=== PATIENT | female | born 1940 | race Caucasian/White ===

== ENCOUNTER 2019-05-30 05:38 | Emergency (ER) | payer MEDICARE, BC ==
[2019-05-30] MEDS ORDERED: Acetaminophen 325 MG Tab PO ONE (05:54)
--- NOTE | 2019-05-30 05:57 | EDM.PDOC ---
<Li Galvan - Last Filed: 05/30/19 06:16> ED HPI GENERAL MEDICAL PROBLEM - General Chief Complaint: Fever Stated Complaint: FEVER/BLADDER INFECTION Time Seen by Provider: 05/30/19 05:55 Source of Information: Reports: Patient History Limitations: Reports: No Limitations - History of Present Illness INITIAL COMMENTS - FREE TEXT/NARRATIVE: pt arrived with a fever and having a low bp. She was started on sat on nitrofurdantin for a UTI. She spiked this fever today. Onset: Other ( Infection started Sat. ) Duration: Hour(s):, Getting Worse Location: Reports: Generalized Associated Symptoms: Reports: Fever/Chills Treatments STOPPER GRINDER: Reports: Other (see below) Other Treatments STOPPER GRINDER: On macrodantin. - Related Data Allergies Allergy/AdvReac Type Severity Reaction Status Date / Time No Known Allergies Allergy Verified 05/30/19 05:50 Home Meds: Home Meds Levothyroxine [Synthroid] 25 mcg PO ACBREAKFAST 01/28/15 [History] Nitrofurantoin Finney/Macrocryst [Nitrofurantoin Finney-MCR] 100 mg PO BID 05/30/19 [History] ED ROS ENT - Review of Systems Review Of Systems: See Below Constitutional: Reports: Fever, Chills, Malaise, Weakness HEENT: Reports: No Symptoms Respiratory: Reports: No Symptoms Cardiovascular: Reports: No Symptoms Endocrine: Reports: No Symptoms GI/Abdominal: Reports: No Symptoms : Reports: Dysuria, Frequency Musculoskeletal: Reports: No Symptoms Neurological: Reports: No Symptoms ED EXAM, ENT - Physical Exam Exam: See Below Text/Narrative:: pt has been spiking high temps. She has been on nitrofurdantin since Sat when she was seen at urgent care. She has been weak and not able to ambulate well. Exam Limited By: No Limitations General Appearance: Alert, Anxious, Other Ears: Normal TMs Nose: Normal Inspection Mouth/Throat: Normal Inspection, Other (pt has a very dry mouth. ) Head: Atraumatic Neck: Normal Inspection Respiratory/Chest: No Respiratory Distress Cardiovascular: Regular Rate, Rhythm GI/Abdominal: Soft, Non-Tender (Female) Exam: Deferred Rectal (Female) Exam: Deferred Back: Normal Inspection Extremities: Normal Inspection Neurological: Alert, Oriented, Normal Cognition Psychiatric: Anxious Course - Vital Signs Last Recorded V/S: Last Vital Signs Temp 98.1 F 05/30/19 08:45 Pulse 79 05/30/19 08:30 Resp 16 05/30/19 07:13 BP 86/59 L 05/30/19 08:30 Pulse Ox 97 05/30/19 08:30 - Orders/Labs/Meds Orders: Active Orders 24 hr Category Date Time Status Bladder Scan [RC] ASDIRECTED Care 05/30/19 06:15 Active CULTURE BLOOD [BC] Urgent Lab 05/30/19 06:00 Received CULTURE BLOOD [BC] Urgent Lab 05/30/19 06:05 Received CULTURE URINE [RM] Stat Lab 05/30/19 06:42 Received Norepinephrine 4 MG in D5W @ 2 MCG/MIN(250ml) Med 05/30/19 08:45 Ordered Norepinephrine [Levophed] 4 mg Dextrose 5% in Water 246 ml IV TITRATE Sodium Chloride 0.9% [Normal Saline] 1,000 ml Med 05/30/19 06:00 Active IV ASDIRECTED Sodium Chloride 0.9% [Normal Saline] 1,000 ml Med 05/30/19 06:00 Active IV ASDIRECTED Blood Culture x2 Reflex Set [OM.PC] Urgent Oth 05/30/19 05:48 Ordered Medication Orders Sodium Chloride (Normal Saline) 1,000 mls @ 999 mls/hr IV ASDIRECTED DOMINGO Last Admin: 05/30/19 06:05 Dose: 999 mls/hr Sodium Chloride (Normal Saline) 1,000 mls @ 999 mls/hr IV ASDIRECTED DOMINGO Last Admin: 05/30/19 07:06 Dose: 999 mls/hr Norepinephrine Bitartrate 4 mg (/ Dextrose/Water) 250 mls @ 7.5 mls/hr IV TITRATE DOMINGO; Protocol Labs: Laboratory Tests 05/30/19 05/30/19 05/30/19 Range/Units 05:48 05:56 06:00 WBC 9.5 (4.5-11.0) K/uL RBC 4.00 (3.30-5.50) M/uL Hgb 11.8 L (12.0-15.0) g/dL Hct 36.0 (36.0-48.0) % MCV 90 (80-98) fL MCH 30 (27-31) pg MCHC 33 (32-36) % Plt Count 141 L (150-400) K/uL Neut % (Auto) 87 H (36-66) % Lymph % (Auto) 6 L (24-44) % [place] % (Auto) 7 H (2-6) % Eos % (Auto) 1 L (2-4) % Baso % (Auto) 0 (0-1) % Sodium (140-148) mmol/L Potassium (3.6-5.2) mmol/L Chloride (100-108) mmol/L Carbon Dioxide (21-32) mmol/L Anion Gap (5.0-14.0) mmol/L BUN (7-18) mg/dL Creatinine (0.6-1.0) mg/dL Est Cr Clr Drug Dosing mL/min Estimated GFR (MDRD) (>60) Glucose (74-106) mg/dL Lactic Acid (0.4-2.0) mmol/L Calcium (8.5-10.1) mg/dL Total Bilirubin (0.2-1.0) mg/dL AST (15-37) U/L ALT (12-78) U/L Alkaline Phosphatase (46-116) U/L Total Protein (6.4-8.2) g/dL Albumin (3.4-5.0) g/dL Globulin (2.3-3.5) g/dL Albumin/Globulin Ratio (1.2-2.2) TSH, Ultra Sensitive 1.055 (0.358-3.740) uIU/mL Urine Color Yellow Urine Appearance Clear Urine pH 6.0 (4.5-8.0) Ur Specific [place] 1.010 (1.008-1.030) Urine Protein Trace (NEGATIVE) mg/dL Urine Glucose (UA) Normal (NEGATIVE) mg/dL Urine Ketones Negative (NEGATIVE) mg/dL Urine Occult Blood Trace (NEGATIVE) Urine Nitrite Negative (NEGATIVE) Urine Bilirubin Negative (NEGATIVE) Urine Urobilinogen Normal (NORMAL) mg/dL Ur Leukocyte Esterase Negative (NEGATIVE) Urine RBC 0-5 (0-5) Urine WBC 0-5 (0-5) Ur Epithelial Cells Few Amorphous Sediment Few Urine Bacteria Few Urine Mucus Not seen 05/30/19 05/30/19 Range/Units 06:00 06:00 WBC (4.5-11.0) K/uL RBC (3.30-5.50) M/uL Hgb (12.0-15.0) g/dL Hct (36.0-48.0) % MCV (80-98) fL MCH (27-31) pg MCHC (32-36) % Plt Count (150-400) K/uL Neut % (Auto) (36-66) % Lymph % (Auto) (24-44) % [place] % (Auto) (2-6) % Eos % (Auto) (2-4) % Baso % (Auto) (0-1) % Sodium 135 L (140-148) mmol/L Potassium 3.5 L (3.6-5.2) mmol/L Chloride 99 L (100-108) mmol/L Carbon Dioxide 25 (21-32) mmol/L Anion Gap 14.5 H (5.0-14.0) mmol/L BUN 20 H (7-18) mg/dL Creatinine 1.2 H (0.6-1.0) mg/dL Est Cr Clr Drug Dosing 41.68 mL/min Estimated GFR (MDRD) 44 L (>60) Glucose 166 H (74-106) mg/dL Lactic Acid 1.7 (0.4-2.0) mmol/L Calcium 8.9 (8.5-10.1) mg/dL Total Bilirubin 0.8 D (0.2-1.0) mg/dL AST 19 (15-37) U/L ALT 22 (12-78) U/L Alkaline Phosphatase 85 (46-116) U/L Total Protein 7.0 (6.4-8.2) g/dL Albumin 3.1 L (3.4-5.0) g/dL Globulin 3.9 H (2.3-3.5) g/dL Albumin/Globulin Ratio 0.8 L (1.2-2.2) TSH, Ultra Sensitive (0.358-3.740) uIU/mL Urine Color Urine Appearance Urine pH (4.5-8.0) Ur Specific [place] (1.008-1.030) Urine Protein (NEGATIVE) mg/dL Urine Glucose (UA) (NEGATIVE) mg/dL Urine Ketones (NEGATIVE) mg/dL Urine Occult Blood (NEGATIVE) Urine Nitrite (NEGATIVE) Urine Bilirubin (NEGATIVE) Urine Urobilinogen (NORMAL) mg/dL Ur Leukocyte Esterase (NEGATIVE) Urine RBC (0-5) Urine WBC (0-5) Ur Epithelial Cells Amorphous Sediment Urine Bacteria Urine Mucus Meds: Medications Generic Name Dose Route Start Last Admin Trade Name Freq PRN Reason Stop Dose Admin Sodium Chloride 1,000 mls @ 999 mls/hr 05/30/19 06:00 05/30/19 06:05 Normal Saline IV 999 mls/hr ASDIRECTED DOMINGO Administration Sodium Chloride 1,000 mls @ 999 mls/hr 05/30/19 06:00 05/30/19 07:06 Normal Saline IV 999 mls/hr ASDIRECTED DOMINGO Administration Norepinephrine Bitartrate 4 mg 250 mls @ 7.5 mls/hr 05/30/19 08:45 / Dextrose/Water IV TITRATE DOMINGO Protocol 2 MCG/MIN Discontinued Medications Generic Name Dose Route Start Last Admin Trade Name Freq PRN Reason Stop Dose Admin Acetaminophen 650 mg 05/30/19 05:54 05/30/19 06:09 Tylenol PO 05/30/19 05:55 650 mg NOW ONE Administration Ceftriaxone Sodium 1 gm/ 50 mls @ 100 mls/hr 05/30/19 06:14 05/30/19 07:09 Sodium Chloride IV 05/30/19 06:43 100 mls/hr ONETIME ONE Administration Departure - Departure Disposition: DC/Tfer to [facility] 02 Clinical Impression: Sepsis Qualifiers: Sepsis type: sepsis due to unspecified organism Qualified Code(s): A41.9 - Sepsis, unspecified organism - Discharge Information Referrals: Donald Trent MD [Primary Care Provider] - Forms: ED Department Discharge - My Orders Last 24 Hours: My Active Orders 05/30/19 08:45 Norepinephrine 4 MG in D5W @ 2 MCG/MIN(250ml) Norepinephrine [Levophed] 4 mg Dextrose 5% in Water 246 ml IV TITRATE - Assessment/Plan Last 24 Hours: My Active Orders 05/30/19 08:45 Norepinephrine 4 MG in D5W @ 2 MCG/MIN(250ml) Norepinephrine [Levophed] 4 mg Dextrose 5% in Water 246 ml IV TITRATE <AmishrRobbie - Last Filed: 05/30/19 08:51> Departure - Departure Time of Disposition: 08:50 Condition: Fair - Assessment/Plan Plan: Assessment Acuity = acute Site and laterality = urinary tract infection concern for early sepsis Etiology = probable bacterial cause Manifestations = confusion, fever, incontinence Location of injury = Home Lab values = CBC unremarkable, creatinine elevated 1.2 consistent with acute renal failure stage G IIIB the lactic acid normal 1.7 thyroid normal 1.055 blood cultures are pending urinalysis unremarkable prior urine culture from 629 reveals mixed wesley Plan Called discussed case with Dr. Cameron emergency room physician at [facility] 845 accept the patient in transport she'll be transported via EMS ground however because of her continued low blood pressure we are start Levaquin prior to transport she has received 1 g of Rocephin. Also we have no beds at our facility This note was dictated using [employer] voice recognition software please call with any questions on syntax or grammar.
[2019-05-30] MEDS ORDERED: Sodium Chloride 0.9% 1,000 ML IV SCH ×2 (06:00)
[2019-05-30] MEDS ORDERED: cefTRIAXone 1 GM in Sodium Chloride 0.9% 50 ML IV ONE (06:14)
--- NOTE | 2019-05-30 07:03 | CRLCR ---
INDICATION: POSSIBLE SEPSIS, PRIOR STUDY DONE 01-28-15 INDICATION: Possible sepsis. TECHNIQUE: Chest 1 view. COMPARISON: 01/28/2015. FINDINGS: Cardiovascular and mediastinum: Heart size and vasculature are normal in caliber and appearance. Mediastinum is within normal limits. Lungs and pleural space: Lungs are clear. No sign of infiltrate or mass. No sign of pleural effusion. No pneumothorax. Bones and soft tissues: No significant findings. IMPRESSION: Lungs are clear. Dictated by Jonah Davila MD @ 05/30/2019 7:02:21 AM Dictated by: Jonah Davila MD @ 05/30/2019 07:02:31 (Electronically Signed)
[2019-05-30] MEDS ORDERED: Norepinephrine 4 MG in Dextrose 5% in Water 246 ML IV SCH ×4 (08:45→09:00)
[2019-05-30] MEDS ORDERED: Lactated Ringers 1,000 ML IV ONE (08:53)
[2019-05-30 09:21] VITALS: BP 112/62
== END 2019-05-30 09:26 ==
LOC: JP.ED 05:38
DX: A41.9 Sepsis, unspecified organism (principal); N39.0 Urinary tract infection, site not specified
CPT/HCPCS: 36415; 51798; 71045; 80053; 81001; 83605; 84443; 85025; 87040; 87086; 96361; 96365; 99285; A9270; J0696; J7030; J7050; J7060; J7120; 87077; 87186

== ENCOUNTER 2019-12-07 14:46 | Emergency (ER) | payer MEDICARE, BC ==
[2019-12-07] MEDS: Sodium Chloride 0.9% 1,000 ML IV ONE ×2 (15:00→15:41)
--- NOTE | 2019-12-07 15:06 | EDM.PDOC ---
ED HPI GENERAL MEDICAL PROBLEM - General Chief Complaint: Neuro Symptoms/Deficits Stated Complaint: FALL VIA NORTH Time Seen by Provider: 12/07/19 14:50 Source of Information: Reports: EMS, Family, Old Records. Denies: Patient History Limitations: Reports: Other (patient not able to tell us what happened.) - History of Present Illness INITIAL COMMENTS - FREE TEXT/NARRATIVE: 79 yo female who lives alone was last seen normal by her daughter 2 days ago. The daughter returned from being out of town today and found her mother on the floor incoherent. She has bleeding from abrasions and bruising extensively from her time on the floor. EMS noted a normal BS, but BP was low in the 90's. She felt cold to them, but her home was warm. Was incontinent of urine. Daughter states that her mother has specified that she does not want to be on a ventilator. Glucose over 100 in the field per EMS. Onset: Unknown/Unsure (Sometime since this past Wednesday.) Duration: Hour(s): (?), Day(s): (?), Constant Location: Reports: Generalized Quality: Reports: Other (unable to verbalize if she is in pain. ) Severity: Severe Improves with: Reports: Other (none) Worsens with: Reports: Other (unknown) Context: Reports: Other (see HPI) Associated Symptoms: Reports: Confusion. Denies: Fever/Chills Treatments AGENCY CASHIER: Reports: Other (see below) (none) - Related Data Allergies Allergy/AdvReac Type Severity Reaction Status Date / Time No Known Allergies Allergy Verified 05/30/19 05:50 Home Meds: Home Meds Levothyroxine [Synthroid] 50 mcg PO ACBREAKFAST 01/28/15 [History] Cyanocobalamin/FA/Pyridoxine [Folbic Tablet] 2 mg PO DAILY 12/07/19 [History] Magnesium Chloride [Mag-64] 64 mg PO DAILY 12/07/19 [History] Metoprolol Succinate 12.5 mg PO BEDTIME 12/07/19 [History] Past Medical History Gastrointestinal History: Reports: Cholelithiasis Neurological History: Reports: Head Trauma, Speech Problems Psychiatric History: Reports: Anxiety, Other (See Below) Other Psychiatric History: memory change Endocrine/Metabolic History: Reports: Hypothyroidism - Infectious Disease History Infectious Disease History: Reports: Chicken Pox Social & Family History - Caffeine Use Caffeine Use: Reports: Coffee ED ROS GENERAL - Review of Systems Review Of Systems: Unable To Obtain (due to altered mental status) Reason Not Obtained: altered LOC - Physical Exam Exam: See Below Exam Limited By: Altered Mental Status General Appearance: Lethargic, Moderate Distress Eye Exam: Bilateral Eye: Normal Inspection, PERRL Ears: Normal External Exam, Normal Canal, Hearing Grossly Normal, Normal TMs Nose: Normal Inspection, No Blood Throat/Mouth: Normal Inspection, Normal Lips, Normal Teeth, Normal Oropharynx, No Airway Compromise Head Exam: Normocephalic, Facial Abrasions Neck: Normal Inspection Respiratory/Chest: No Respiratory Distress, Lungs Clear, Normal Breath Sounds, No Accessory Muscle Use Cardiovascular: Regular Rate, Rhythm, No Edema, Bradycardia GI/Abdominal: Soft, Non-Tender, No Distention Neuro Exam (Abbreviated): CN II-XII Intact, Other (moves all extrems, not following commands, nonverbal) Back Exam: Normal Inspection Extremities: Pedal Edema, Pallor. No: Increased Warmth, Redness Skin Exam: Dry, No Rash, Cool, Ecchymosis (extensive bruising and abrasions), Wound/Incision (abrasions). No: Warm EKG INTERPRETATION EKG Date: 12/07/19 Time: 14:55 Rhythm: A-Fib Rate (Beats/Min): 45 [place]: Normal P-Wave: Present QRS: Other (nonspecific intraventricular conduction delay) ST-T: Elevated (II, III, AVF-not new) QT: Normal Comparison: Change From Previous EKG (rate has slowed about 20 beats/min. , rhythm) Course - Vital Signs Last Recorded V/S: Last Vital Signs Temp 33.8 C L 12/07/19 15:15 Pulse 53 L 12/07/19 15:30 Resp 13 12/07/19 15:30 BP 103/52 L 12/07/19 15:30 Pulse Ox 97 12/07/19 15:30 - Orders/Labs/Meds Orders: Active Orders 24 hr Category Date Time Status Cardiac Monitoring [RC] .As Directed Care 12/07/19 14:51 Active Stephens Catheter Insertion [Insert Urinary Catheter] [OM. Care 12/07/19 15:00 Ordered PC] Q24H Urinary Catheter Assessment [RC] ASDIRECTED Care 12/07/19 14:49 Active CULTURE URINE [RM] Stat Lab 12/07/19 15:14 Received Hemoccult [OCCULT BLOOD DIAGNOSTIC] [OP] Stat Lab 12/07/19 15:12 Ordered Labs: Laboratory Tests 12/07/19 12/07/19 12/07/19 Range/Units 15:03 15:03 15:03 WBC 6.1 (4.5-11.0) K/uL RBC 3.03 L (3.30-5.50) M/uL Hgb 8.6 L D (12.0-15.0) g/dL Hct 25.8 L (36.0-48.0) % MCV 85 (80-98) fL MCH 28 (27-31) pg MCHC 33 (32-36) % Plt Count 172 (150-400) K/uL PT (9.5-12.0) sec INR (0.80-1.20) Sodium 120 L (140-148) mmol/L Potassium 4.5 (3.6-5.2) mmol/L Chloride 87 L (100-108) mmol/L Carbon Dioxide 26 (21-32) mmol/L Anion Gap 11.5 (5.0-14.0) mmol/L BUN 14 (7-18) mg/dL Creatinine 0.6 (0.6-1.0) mg/dL Est Cr Clr Drug Dosing 70.66 mL/min Estimated GFR (MDRD) > 60 (>60) Glucose 102 (74-106) mg/dL Calcium 9.1 (8.5-10.1) mg/dL Creatine Kinase (26-192) U/L Troponin I 0.021 (0.000-0.056) ng/mL TSH, Ultra Sensitive 2.236 (0.358-3.740) uIU/mL Urine Color (YELLOW) Urine Appearance (CLEAR) Urine pH (5.0-8.0) Ur Specific [place] (1.008-1.030) Urine Protein (NEGATIVE) mg/dL Urine Glucose (UA) (NEGATIVE) mg/dL Urine Ketones (NEGATIVE) mg/dL Urine Occult Blood (NEGATIVE) Urine Nitrite (NEGATIVE) Urine Bilirubin (NEGATIVE) Urine Urobilinogen (0.2-1.0) EU/dL Ur Leukocyte Esterase (NEGATIVE) Urine RBC (0-5) Urine WBC (0-5) Ur Epithelial Cells Amorphous Sediment Urine Bacteria Urine Mucus 12/07/19 12/07/19 12/07/19 Range/Units 15:03 15:03 15:06 WBC (4.5-11.0) K/uL RBC (3.30-5.50) M/uL Hgb (12.0-15.0) g/dL Hct (36.0-48.0) % MCV (80-98) fL MCH (27-31) pg MCHC (32-36) % Plt Count (150-400) K/uL PT 12.0 (9.5-12.0) sec INR 1.12 (0.80-1.20) Sodium (140-148) mmol/L Potassium (3.6-5.2) mmol/L Chloride (100-108) mmol/L Carbon Dioxide (21-32) mmol/L Anion Gap (5.0-14.0) mmol/L BUN (7-18) mg/dL Creatinine (0.6-1.0) mg/dL Est Cr Clr Drug Dosing mL/min Estimated GFR (MDRD) (>60) Glucose (74-106) mg/dL Calcium (8.5-10.1) mg/dL Creatine Kinase 2155 H (26-192) U/L Troponin I (0.000-0.056) ng/mL TSH, Ultra Sensitive (0.358-3.740) uIU/mL Urine Color Yellow (YELLOW) Urine Appearance Cloudy A (CLEAR) Urine pH 6.0 (5.0-8.0) Ur Specific [place] >= 1.030 (1.008-1.030) Urine Protein Negative (NEGATIVE) mg/dL Urine Glucose (UA) Negative (NEGATIVE) mg/dL Urine Ketones 40 H (NEGATIVE) mg/dL Urine Occult Blood Small H (NEGATIVE) Urine Nitrite Positive H (NEGATIVE) Urine Bilirubin Negative (NEGATIVE) Urine Urobilinogen 1.0 (0.2-1.0) EU/dL Ur Leukocyte Esterase Negative (NEGATIVE) Urine RBC 0-5 (0-5) Urine WBC 5-10 H (0-5) Ur Epithelial Cells Rare Amorphous Sediment Not seen Urine Bacteria Many Urine Mucus Few Meds: Medications Discontinued Medications Generic Name Dose Route Start Last Admin Trade Name Freq PRN Reason Stop Dose Admin Sodium Chloride 1,000 mls @ 1,000 mls/hr 12/07/19 14:51 12/07/19 15:41 Normal Saline IV 12/07/19 15:50 Not Given .BOLUS ONE - Radiology Interpretation Free Text/Narrative:: CXR-Findings/Impression: Cardiovascular and mediastinum: Heart size and vasculature are normal in caliber and appearance. Mediastinum is within normal limits. Lungs and pleural space: Lungs are clear. No sign of infiltrate or mass. No sign of pleural effusion. No pneumothorax. Bones and soft tissues: No significant findings. Dictated by Savannah Vines MD @ Dec 07 2019 3:55PM Head CT scan-IMPRESSION: Unable to examine the vertex of the skull or the most inferior portion of the brain and skullbase as a result of prominent patient motion from altered mental status. Today`s study is diagnostic however. New large left posterior parietal scalp hematoma with associated subperiosteal hematoma overlying the left posterior parietal skull. The underline skull is intact. No sign of injury to the underlying brain. Minimal left anterior falcine subdural hematoma associated with minimal subarachnoid hemorrhage in the dependent portion of the anterior interhemispheric fissure. No mass effect from these hemorrhages. No sign of intraparenchymal hemorrhage. Mild, age-appropriate atrophy. Please note that all CT scans at this facility use dose modulation, iterative reconstruction, and/or weight-based dosing when appropriate to reduce radiation dose to as low as reasonably achievable. Dictated by Ayaz Son MD @ Dec 07 2019 3:49PM CT Results Date: 12/07/19 Departure - Departure Time of Disposition: 16:05 Disposition: DC/[facility] to [facility] 02 Condition: Critical Clinical Impression: Decreased level of consciousness, Hyponatremia Head injury Qualifiers: Encounter type: initial encounter Qualified Code(s): S09.90XA - Unspecified injury of head, initial encounter Hypothermia Qualifiers: Encounter type: initial encounter Qualified Code(s): T68.XXXA - Hypothermia, initial encounter Rhabdomyolysis Qualifiers: Rhabdomyolysis type: traumatic Encounter type: initial encounter Qualified Code (s): T79.6XXA - Traumatic ischemia of muscle, initial encounter Scalp hematoma Qualifiers: Encounter type: initial encounter Qualified Code(s): S00.03XA - Contusion of scalp, initial encounter - Discharge Information *PRESCRIPTION DRUG MONITORING PROGRAM REVIEWED*: No *COPY OF PRESCRIPTION DRUG MONITORING REPORT IN PATIENT BRIAN: No Referrals: PCP,None [Primary Care Provider] - Forms: ED Department Discharge Sepsis Event Note - Focused Exam Vital Signs: Vital Signs Temp Pulse Resp BP Pulse Ox 12/07/19 15:30 53 L 13 103/52 L 97 12/07/19 15:25 11 L 63/43 L 12/07/19 15:15 33.8 C L 12 117/51 L 97 12/07/19 15:13 117/51 L 12/07/19 15:08 33.8 C L 49 L 11 L 91 L Date Exam was Performed: 12/07/19 Time Exam was Performed: 16:03 - My Orders Last 24 Hours: My Active Orders 12/07/19 14:49 Urinary Catheter Assessment [RC] ASDIRECTED 12/07/19 14:51 Cardiac Monitoring [RC] .As Directed 12/07/19 15:00 Stephens Catheter Insertion [Insert Urinary Catheter] [OM.PC] Q24H 12/07/19 15:12 Hemoccult [OCCULT BLOOD DIAGNOSTIC] [OP] Stat 12/07/19 15:14 CULTURE URINE [RM] Stat - Assessment/Plan Last 24 Hours: My Active Orders 12/07/19 14:49 Urinary Catheter Assessment [RC] ASDIRECTED 12/07/19 14:51 Cardiac Monitoring [RC] .As Directed 12/07/19 15:00 Stephens Catheter Insertion [Insert Urinary Catheter] [OM.PC] Q24H 12/07/19 15:12 Hemoccult [OCCULT BLOOD DIAGNOSTIC] [OP] Stat 12/07/19 15:14 CULTURE URINE [RM] Stat
[2019-12-07 15:50] VITALS: BP 103/52; PULSE 53
--- NOTE | 2019-12-07 15:56 | CRLCR ---
Indication: Hypoxia, decreased level of awareness Technique: Chest 1 view Comparison: None Findings/Impression: Cardiovascular and mediastinum: Heart size and vasculature are normal in caliber and appearance. Mediastinum is within normal limits. Lungs and pleural space: Lungs are clear. No sign of infiltrate or mass. No sign of pleural effusion. No pneumothorax. Bones and soft tissues: No significant findings. Dictated by Savannah Vines MD @ Dec 07 2019 3:55PM Signed by Dr. Savannah Vines @ Dec 07 2019 3:55PM
[2019-12-07] MEDS ORDERED: Sodium Chloride 0.9% 10 ML SDV IV ONE (16:00)
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
[2019-12-07] MEDS ORDERED: Sodium Chloride 0.9% 500 ML IV ONE (16:21)
== END 2019-12-07 16:15 ==
LOC: JP.ED 14:46
DX: S09.90XA Unspecified injury of head, initial encounter (principal); S00.03XA Contusion of scalp, initial encounter; T68.XXXA Hypothermia, initial encounter; T79.6XXA Traumatic ischemia of muscle, initial encounter; E03.9 Hypothyroidism, unspecified; R41.82 Altered mental status, unspecified; E87.1 Hypo-osmolality and hyponatremia; Z79.890 Hormone replacement therapy; W18.30XA Fall on same level, unspecified, initial encounter
CPT/HCPCS: 36415; 51702; 70450; 71045; 80048; 81001; 82550; 84443; 84484; 85027; 85610; 87086; 87088; 87186; 93010; 96360; 99285; J7030

== ENCOUNTER 2024-07-04 12:02 | Emergency (ER) | payer MEDICARE, BC, MEDICAID ==
[2024-07-04 13:40] LABS: CORONAVIRUS COVID-19 NAA NEGATIVE (NEGATIVE); INFLUENZA A NAA NEGATIVE (NEGATIVE); INFLUENZA B NAA NEGATIVE (NEGATIVE); RESPIRATORY SYNCYTIAL VIR NAA NEGATIVE (NEGATIVE)
[2024-07-04 13:42] LABS: BASE EXCESS VENOUS 2.4 mm/L; BASOPHILS ABSOLUTE AUTO 0.03 K/uL (0.00-0.10); BASOPHILS PERCENT AUTO 0.3 % (0.1-1.3); BICARBONATE,VENOUS 26.5 mmol/L; CARBOXYHEMOGLOBIN 2.7 % (0.0-1.6); EOSINOPHILS PERCENT AUTO 0.1 % (0.0-5.4); HEMATOCRIT 35.8 % (34.3-46.0); HEMOGLOBIN 12.4 g/dL (11.2-15.5); IMMATURE GRAN ABSOLUTE AUTO 0.04 K/uL (0.00-0.23); IMMATURE GRAN PERCENT AUTO 0.4 % (0.0-0.7); LYMPHOCYTES ABSOLUTE AUTO 0.54 K/uL (0.8-3.3); MEAN CORPUSCULAR HEMOGLOBIN 31.5 pg (31.6-35.5); MEAN CORPUSCULAR HGB CONC 34.6 g/dL (31.6-35.5); MEAN CORPUSCULAR VOLUME 90.9 fL (81.4-99.0); METHEMOGLOBIN 0.7 %; MONOCYTES PERCENT AUTO 8.4 % (3.3-12.6); NEUTROPHILS ABSOLUTE AUTO 9.25 K/uL (1.0-7.6); NEUTROPHILS PERCENT AUTO 85.8 % (40.0-78.1); O2 SATURATION VENOUS 68.2; OXYHEMOGLOBIN 65.9 %; PCO2 VENOUS 41.1 mm/Hg; PH,VENOUS 7.425 (7.350-7.450); PLATELET COUNT,PLT 130 K/uL (130-375); RED BLOOD CELL COUNT 3.94 M/uL (3.77-5.24); WHITE BLOOD CELL COUNT,WBC 10.8 K/uL (3.2-11.0)
[2024-07-04 13:46] LABS: PO2 VENOUS 37.9 mm/Hg
[2024-07-04 13:55] LABS: EOSINOPHILS ABSOLUTE AUTO 0.01 K/uL (0.00-0.40)
[2024-07-04 14:02] LABS: INR 1.1
[2024-07-04 14:19] LABS: A/G RATIO 1.2 (1.2-2.2); ALANINE AMINOTRANSFERASE,ALT 23 U/L (12-78); ALBUMIN 3.8 g/dL (3.4-5.0); ALKALINE PHOSPHATASE 73 U/L (46-116); ASPARTATE AMNIOTRANSFERASE,AST 21 U/L (15-37); BILIRUBIN TOTAL 0.8 mg/dL (0.2-1.0); BLOOD UREA NITROGEN,BUN 10 mg/dL (7-18); CALCIUM 9.2 mg/dL (8.5-10.1); CARBON DIOXIDE,CO2 29 mmol/L (21-32); CHLORIDE,CL 102 mmol/L (100-108); CREATININE 0.9 mg/dL (0.6-1.0); ESTIMATED GFR 64 mL/min (>60); GLUCOSE RANDOM 126 mg/dL (74-106); PRO B-TYPE NATRIUR PEPT,BNPPRO 609 pg/mL (5-450); SODIUM,NA 139 mmol/L (140-148)
[2024-07-04] MEDS: Aspirin 81 MG Tab.Chew PO ONE (14:31)
[2024-07-04] MEDS: Nitroglycerin 0.4 MG Tab.SL SL PRN (14:32)
[2024-07-04 14:38] LABS: APPEARANCE,URINE CLEAR (CLEAR); BILIRUBIN,URINE NEGATIVE (NEGATIVE); COLOR,URINE YELLOW (YELLOW); GLUCOSE,URINE NEGATIVE (NEGATIVE); KETONES,URINE TRACE mg/dL (NEGATIVE); LEUKOCYTE ESTERASE,URINE NEGATIVE (NEGATIVE); NITRITE,URINE NEGATIVE (NEGATIVE); OCCULT BLOOD,URINE NEGATIVE (NEGATIVE); PROTEIN,URINE TRACE mg/dL (NEGATIVE)
[2024-07-04] MEDS: Sodium Chloride 0.9% 1,000 ML IV ONE (14:43)
[2024-07-04] MEDS: Aspirin 81 MG Tab.Chew ONE (14:43)
[2024-07-04 14:49] LABS: RBC,URINE NOT SEEN (0-5)
[2024-07-04] MEDS: Furosemide 20 MG/2 ML VIAL IVPUSH ONE (14:49)
[2024-07-04 14:50] LABS: AMORPHOUS SEDIMENT,URINE NOT SEEN; BACTERIA,URINE RARE; EPITHELIAL CELLS,URINE OCCASIONAL; MUCUS,URINE NOT SEEN; WBC,URINE NOT SEEN (0-5)
[2024-07-04] MEDS ORDERED: Iopamidol 612 MG/ML 100 ML Bottle IV PRN (16:08)
[2024-07-04] MEDS: Sodium Chloride 0.9% 10 ML Syringe FLUSH PRN (16:37)
[2024-07-04] MEDS: Iopamidol 755 Mg/ML 100 ML Bottle IV SCH (16:37)
[2024-07-04] MEDS: Sodium Chloride 0.9% 80 ML IV SCH (16:37)
[2024-07-04] MEDS: Metoprolol Succinate 25 MG Tab.ER PO ONE (17:41)
[2024-07-04] MEDS: Metoprolol Tartrate 5 MG in Sodium Chloride 0.9% 50 ML IV ONE (17:42)
[2024-07-04 21:21] VITALS: BP 103/37; PULSE 64
[2024-07-04] MEDS: Acetaminophen 325 MG Tab PO ONE (21:24)
== END 2024-07-04 21:24 ==
LOC: JP.ED 12:02
DX: I47.10 Supraventricular tachycardia, unspecified (principal); I10 Essential (primary) hypertension; E03.9 Hypothyroidism, unspecified; Z79.899 Other long term (current) drug therapy; R41.82 Altered mental status, unspecified
CPT/HCPCS: 0241U; 36415; 71045; 71275; 80053; 81001; 82803; 83605; 83880; 84145; 84443; 84484; 85025; 85379; 85610; 93005; 93010; 96361; 96374; 99285; A9270; J1940; J3490; J7030; Q9967

== ENCOUNTER 2024-07-11 12:39 | Emergency (ER) | payer MEDICARE, BC, MEDICAID ==
[2024-07-11 14:20] LABS: BASOPHILS ABSOLUTE AUTO 0.04 K/uL (0.00-0.10); BASOPHILS PERCENT AUTO 0.6 % (0.1-1.3); EOSINOPHILS ABSOLUTE AUTO 0.08 K/uL (0.00-0.40); EOSINOPHILS PERCENT AUTO 1.2 % (0.0-5.4); HEMATOCRIT 35.7 % (34.3-46.0); HEMOGLOBIN 12.2 g/dL (11.2-15.5); IMMATURE GRAN PERCENT AUTO 0.3 % (0.0-0.7); LYMPHOCYTES ABSOLUTE AUTO 0.69 K/uL (0.8-3.3); LYMPHOCYTES PERCENT AUTO 9.9 % (11.4-47.7); MEAN CORPUSCULAR HEMOGLOBIN 31.1 pg (31.6-35.5); MEAN CORPUSCULAR HGB CONC 34.2 g/dL (31.6-35.5); MEAN CORPUSCULAR VOLUME 91.1 fL (81.4-99.0); MONOCYTES ABSOLUTE AUTO 0.55 K/uL (0.20-0.90); MONOCYTES PERCENT AUTO 7.9 % (3.3-12.6); NEUTROPHILS ABSOLUTE AUTO 5.57 K/uL (1.0-7.6); NEUTROPHILS PERCENT AUTO 80.1 % (40.0-78.1); PLATELET COUNT,PLT 189 K/uL (130-375); RED BLOOD CELL COUNT 3.92 M/uL (3.77-5.24)
[2024-07-11 14:21] LABS: IMMATURE GRAN ABSOLUTE AUTO 0.02 K/uL (0.00-0.23)
[2024-07-11 14:42] LABS: INR 1.1; PROTHROMBIN TIME 11.6 sec (9.2-10.6); PTT,PARTIAL THROMBOPLSTIN TIME 24.7 sec (21.8-27.3)
[2024-07-11 14:48] LABS: ANION GAP 9.3 mmol/L (5.0-14.0); CALCIUM 9.1 mg/dL (8.5-10.1); DIGOXIN 0.97 ng/mL (0.90-2.00); EST CRCL DRUG DOSING (CG) 46.11 mL/min; PHOSPHORUS 3.6 mg/dL (2.5-4.9); POTASSIUM,K 3.9 mmol/L (3.6-5.2); T4 FREE 1.16 ng/dL (0.76-1.46); TROPONIN I HIGH SENSITIVITY 8.2 pg/mL (<=60.3)
[2024-07-11 16:09] LABS: APPEARANCE,URINE SLIGHTLY CLOUDY (CLEAR); BILIRUBIN,URINE NEGATIVE (NEGATIVE); COLOR,URINE YELLOW (YELLOW); GLUCOSE,URINE NEGATIVE (NEGATIVE); KETONES,URINE TRACE mg/dL (NEGATIVE); LEUKOCYTE ESTERASE,URINE TRACE (NEGATIVE); NITRITE,URINE NEGATIVE (NEGATIVE); OCCULT BLOOD,URINE NEGATIVE (NEGATIVE); PROTEIN,URINE 30 mg/dL (NEGATIVE)
[2024-07-11 16:15] LABS: AMORPHOUS SEDIMENT,URINE NOT SEEN; BACTERIA,URINE FEW; EPITHELIAL CELLS,URINE MANY; MUCUS,URINE RARE; RBC,URINE 0-5 (0-5)
[2024-07-11] MEDS: Amoxicillin/Clavulanate K 875-125 MG Tab PO ONE (17:30)
[2024-07-11 17:56] VITALS: BP 135/84; PULSE 143
== END 2024-07-11 17:56 | disposition home or self-care (01) ==
LOC: JP.ED 12:39
DX: R55 Syncope and collapse (principal); J32.9 Chronic sinusitis, unspecified; I10 Essential (primary) hypertension; E03.9 Hypothyroidism, unspecified; Z90.710 Acquired absence of both cervix and uterus; Z79.899 Other long term (current) drug therapy
CPT/HCPCS: 36415; 70450; 71045; 80048; 80162; 81001; 83605; 83735; 84100; 84439; 84484; 85025; 85610; 85730; 93005; 99285; A9270

== ENCOUNTER 2024-11-27 00:32 | Emergency (ER) | payer MEDICARE, BC ==
[2024-11-27 01:10] LABS: BASOPHILS ABSOLUTE AUTO 0.04 K/uL (0.00-0.10); BASOPHILS PERCENT AUTO 0.6 % (0.1-1.3); EOSINOPHILS ABSOLUTE AUTO 0.19 K/uL (0.00-0.40); HEMATOCRIT 34.4 % (34.3-46.0); HEMOGLOBIN 11.4 g/dL (11.2-15.5); IMMATURE GRAN ABSOLUTE AUTO 0.01 K/uL (0.00-0.23); IMMATURE GRAN PERCENT AUTO 0.2 % (0.0-0.7); LYMPHOCYTES ABSOLUTE AUTO 1.19 K/uL (0.8-3.3); LYMPHOCYTES PERCENT AUTO 18.8 % (11.4-47.7); MEAN CORPUSCULAR HEMOGLOBIN 30.9 pg (31.6-35.5); MEAN CORPUSCULAR HGB CONC 33.1 g/dL (31.6-35.5); MEAN CORPUSCULAR VOLUME 93.2 fL (81.4-99.0); MONOCYTES ABSOLUTE AUTO 0.69 K/uL (0.20-0.90); MONOCYTES PERCENT AUTO 10.9 % (3.3-12.6); NEUTROPHILS ABSOLUTE AUTO 4.22 K/uL (1.0-7.6); NEUTROPHILS PERCENT AUTO 66.5 % (40.0-78.1); PLATELET COUNT,PLT 141 K/uL (130-375); RED BLOOD CELL COUNT 3.69 M/uL (3.77-5.24); WHITE BLOOD CELL COUNT,WBC 6.3 K/uL (3.2-11.0)
[2024-11-27 01:17] VITALS: BP 105/69; PULSE 60
[2024-11-27 01:25] LABS: ANION GAP 10.7 mmol/L (5.0-14.0); EST CRCL DRUG DOSING (CG) 45.33 mL/min; POTASSIUM,K 3.7 mmol/L (3.6-5.2)
== END 2024-11-27 01:51 ==
LOC: JP.ED 00:32
DX: K59.1 Functional diarrhea (principal); R09.89 Other specified symptoms and signs involving the circulatory and respiratory systems; I25.10 Atherosclerotic heart disease of native coronary artery without angina pectoris; I11.0 Hypertensive heart disease with heart failure; I50.9 Heart failure, unspecified; E03.9 Hypothyroidism, unspecified; Z86.73 Personal history of transient ischemic attack (TIA), and cerebral infarction without residual deficits; Z86.16 Personal history of COVID-19; Z90.710 Acquired absence of both cervix and uterus; Z79.890 Hormone replacement therapy; Z79.899 Other long term (current) drug therapy
CPT/HCPCS: 36415; 80048; 83605; 85025; 99284

== ENCOUNTER 2025-01-15 14:05 | Emergency (ER) | payer MEDICARE, BC ==
[2025-01-15] MEDS: Sodium Chloride 0.9% 1,000 ML IV ONE (14:46)
[2025-01-15] MEDS: Sodium Chloride 0.9% 10 ML Syringe FLUSH PRN (14:47)
[2025-01-15 14:56] LABS: BASOPHILS ABSOLUTE AUTO 0.04 K/uL (0.00-0.10); BASOPHILS PERCENT AUTO 0.6 % (0.1-1.3); EOSINOPHILS ABSOLUTE AUTO 0.08 K/uL (0.00-0.40); EOSINOPHILS PERCENT AUTO 1.1 % (0.0-5.4); HEMATOCRIT 39.8 % (34.3-46.0); HEMOGLOBIN 13.1 g/dL (11.2-15.5); IMMATURE GRAN PERCENT AUTO 0.3 % (0.0-0.7); LYMPHOCYTES ABSOLUTE AUTO 0.96 K/uL (0.8-3.3); LYMPHOCYTES PERCENT AUTO 13.6 % (11.4-47.7); MEAN CORPUSCULAR HEMOGLOBIN 30.5 pg (31.6-35.5); MEAN CORPUSCULAR HGB CONC 32.9 g/dL (31.6-35.5); MEAN CORPUSCULAR VOLUME 92.6 fL (81.4-99.0); MONOCYTES ABSOLUTE AUTO 0.69 K/uL (0.20-0.90); MONOCYTES PERCENT AUTO 9.8 % (3.3-12.6); NEUTROPHILS ABSOLUTE AUTO 5.26 K/uL (1.0-7.6); NEUTROPHILS PERCENT AUTO 74.6 % (40.0-78.1); PLATELET COUNT,PLT 169 K/uL (130-375); WHITE BLOOD CELL COUNT,WBC 7.1 K/uL (3.2-11.0)
[2025-01-15 14:59] LABS: IMMATURE GRAN ABSOLUTE AUTO 0.02 K/uL (0.00-0.23)
[2025-01-15 15:02] LABS: ANION GAP 9.9 mmol/L (5.0-14.0); CALCIUM 9.6 mg/dL (8.5-10.1); CREATININE 1.2 mg/dL (0.6-1.0); EST CRCL DRUG DOSING (CG) 33.84 mL/min; MAGNESIUM 2.1 mg/dL (1.8-2.4); POTASSIUM,K 3.9 mmol/L (3.6-5.2)
[2025-01-15] MEDS: Metoprolol Tartrate 5 MG/5 ML SDV IVPUSH ONE (15:36)
[2025-01-15 16:24] VITALS: BP 143/62; PULSE 88
== END 2025-01-15 16:35 | disposition home or self-care (01) ==
LOC: JP.ED 14:05
DX: I48.0 Paroxysmal atrial fibrillation (principal); R53.1 Weakness; I25.10 Atherosclerotic heart disease of native coronary artery without angina pectoris; I11.0 Hypertensive heart disease with heart failure; I50.9 Heart failure, unspecified; E03.9 Hypothyroidism, unspecified; Z86.16 Personal history of COVID-19; Z90.710 Acquired absence of both cervix and uterus; Z86.73 Personal history of transient ischemic attack (TIA), and cerebral infarction without residual deficits; Z79.890 Hormone replacement therapy; Z79.899 Other long term (current) drug therapy
CPT/HCPCS: 36415; 80048; 83735; 84443; 85025; 93005; 96360; 96361; 99285; J7030; 93010; 99284

== ENCOUNTER 2025-02-05 09:22 | Emergency (ER) | payer MEDICARE, BC ==
[2025-02-05 10:04] LABS: BASOPHILS PERCENT AUTO 0.3 % (0.1-1.3); EOSINOPHILS ABSOLUTE AUTO 0.15 K/uL (0.00-0.40); HEMATOCRIT 35.9 % (34.3-46.0); HEMOGLOBIN 11.8 g/dL (11.2-15.5); IMMATURE GRAN PERCENT AUTO 0.3 % (0.0-0.7); LYMPHOCYTES ABSOLUTE AUTO 1.04 K/uL (0.8-3.3); LYMPHOCYTES PERCENT AUTO 13.9 % (11.4-47.7); MEAN CORPUSCULAR HEMOGLOBIN 30.4 pg (31.6-35.5); MEAN CORPUSCULAR HGB CONC 32.9 g/dL (31.6-35.5); MEAN CORPUSCULAR VOLUME 92.5 fL (81.4-99.0); MONOCYTES ABSOLUTE AUTO 0.68 K/uL (0.20-0.90); MONOCYTES PERCENT AUTO 9.1 % (3.3-12.6); NEUTROPHILS ABSOLUTE AUTO 5.59 K/uL (1.0-7.6); NEUTROPHILS PERCENT AUTO 74.4 % (40.0-78.1); PLATELET COUNT,PLT 135 K/uL (130-375); RED BLOOD CELL COUNT 3.88 M/uL (3.77-5.24); WHITE BLOOD CELL COUNT,WBC 7.5 K/uL (3.2-11.0)
[2025-02-05 10:14] LABS: BASOPHILS ABSOLUTE AUTO 0.02 K/uL (0.00-0.10); IMMATURE GRAN ABSOLUTE AUTO 0.02 K/uL (0.00-0.23)
[2025-02-05 10:25] LABS: A/G RATIO 1.2 (1.2-2.2); ALANINE AMINOTRANSFERASE,ALT 25 U/L (12-78); ALBUMIN 3.5 g/dL (3.4-5.0); ALKALINE PHOSPHATASE 58 U/L (46-116); ANION GAP 9.5 mmol/L (5.0-14.0); ASPARTATE AMNIOTRANSFERASE,AST 20 U/L (15-37); BILIRUBIN TOTAL 0.6 mg/dL (0.2-1.0); BLOOD UREA NITROGEN,BUN 17 mg/dL (7-18); CALCIUM 9.4 mg/dL (8.5-10.1); CARBON DIOXIDE,CO2 29 mmol/L (21-32); CHLORIDE,CL 106 mmol/L (100-108); ESTIMATED GFR 56 mL/min (>60); GLUCOSE RANDOM 122 mg/dL (74-106); POTASSIUM,K 3.7 mmol/L (3.6-5.2); PROTEIN TOTAL,TP 6.3 g/dL (6.4-8.2); SODIUM,NA 144 mmol/L (140-148)
[2025-02-05 10:34] LABS: APPEARANCE,URINE SLIGHTLY CLOUDY (CLEAR); BILIRUBIN,URINE NEGATIVE (NEGATIVE); COLOR,URINE YELLOW (YELLOW); GLUCOSE,URINE NEGATIVE (NEGATIVE); KETONES,URINE NEGATIVE (NEGATIVE); LEUKOCYTE ESTERASE,URINE NEGATIVE (NEGATIVE); NITRITE,URINE NEGATIVE (NEGATIVE); OCCULT BLOOD,URINE MODERATE (NEGATIVE); PH,URINE 6.5 (5.0-8.0); PROTEIN,URINE TRACE mg/dL (NEGATIVE)
[2025-02-05 10:41] LABS: AMORPHOUS SEDIMENT,URINE FEW; BACTERIA,URINE RARE; EPITHELIAL CELLS,URINE FEW; MUCUS,URINE MANY; RBC,URINE 30-40 (0-5); WBC,URINE 0-5 (0-5)
[2025-02-05 11:21] VITALS: BP 102/51; PULSE 68
== END 2025-02-05 11:22 | disposition home or self-care (01) ==
LOC: JP.ED 09:22
DX: R55 Syncope and collapse (principal); I25.10 Atherosclerotic heart disease of native coronary artery without angina pectoris; I11.0 Hypertensive heart disease with heart failure; I50.9 Heart failure, unspecified; E03.9 Hypothyroidism, unspecified; Z86.16 Personal history of COVID-19; Z86.73 Personal history of transient ischemic attack (TIA), and cerebral infarction without residual deficits; Z90.710 Acquired absence of both cervix and uterus; Z79.890 Hormone replacement therapy; Z79.899 Other long term (current) drug therapy
CPT/HCPCS: 36415; 80053; 81001; 83605; 84484; 85025; 85379; 93005; 99285

== ENCOUNTER 2025-07-18 11:45 | Inpatient (IN) | payer MEDICARE, BC ==
[2025-07-18] MEDS ORDERED: Sodium Chloride 0.9% 10 ML Syringe FLUSH PRN (11:52)
[2025-07-18 12:09] LABS: BASOPHILS PERCENT AUTO 0.2 % (0.1-1.3); EOSINOPHILS PERCENT AUTO 0.1 % (0.0-5.4); IMMATURE GRAN ABSOLUTE AUTO 0.07 K/uL (0.00-0.23); IMMATURE GRAN PERCENT AUTO 0.5 % (0.0-0.7); LYMPHOCYTES ABSOLUTE AUTO 0.83 K/uL (0.8-3.3); LYMPHOCYTES PERCENT AUTO 6.5 % (11.4-47.7); MONOCYTES ABSOLUTE AUTO 1.45 K/uL (0.20-0.90); MONOCYTES PERCENT AUTO 11.3 % (3.3-12.6); NEUTROPHILS ABSOLUTE AUTO 10.40 K/uL (1.0-7.6); NEUTROPHILS PERCENT AUTO 81.4 % (40.0-78.1); PLATELET COUNT,PLT 126 K/uL (130-375); RED BLOOD CELL COUNT 3.50 M/uL (3.77-5.24); WHITE BLOOD CELL COUNT,WBC 12.8 K/uL (3.2-11.0)
[2025-07-18 12:20] LABS: BASOPHILS ABSOLUTE AUTO 0.02 K/uL (0.00-0.10); EOSINOPHILS ABSOLUTE AUTO 0.01 K/uL (0.00-0.40)
[2025-07-18 12:30] LABS: INR 1.4; PTT,PARTIAL THROMBOPLSTIN TIME 29.8 sec (21.8-27.3)
[2025-07-18 12:32] LABS: BLOOD UREA NITROGEN,BUN 17.0 mg/dL (7-18); CARBON DIOXIDE,CO2 31.0 mmol/L (21-32); CHLORIDE,CL 102.0 mmol/L (100-108); CREATININE 0.8 mg/dL (0.6-1.0); EST CRCL DRUG DOSING (CG) 56.66 mL/min; ESTIMATED GFR 74.0 mL/min (>60); GLUCOSE RANDOM 127.0 mg/dL (74-106); POTASSIUM,K 3.6 mmol/L (3.6-5.2); SODIUM,NA 137.0 mmol/L (140-148)
[2025-07-18 12:34] LABS: TROPONIN I HIGH SENSITIVITY 886.6 pg/mL (<=60.3)
[2025-07-23] MEDS: LORazepam ORAL Concentrate 1MG/0.5ML U/D SL PRN (20:12)
[2025-07-26 10:24] VITALS: BP 106/48; PULSE 68
== END 2025-07-26 10:25 | disposition hospice, home (50) | DRG 951 ==
LOC: JP.ED 11:45 → JP.MS 14:00
PROVIDERS: ADMIT Internal Medicine; ATTEND Student in an Organized Health Care Education/Training Program
DX: Z51.5 Encounter for palliative care (principal); I63.519 Cerebral infarction due to unspecified occlusion or stenosis of unspecified middle cerebral artery; I21.4 Non-ST elevation (NSTEMI) myocardial infarction; Z66 Do not resuscitate; H54.7 Unspecified visual loss; I48.91 Unspecified atrial fibrillation; R29.731 NIHSS score 31; I25.10 Atherosclerotic heart disease of native coronary artery without angina pectoris; I11.0 Hypertensive heart disease with heart failure; I50.9 Heart failure, unspecified; F41.9 Anxiety disorder, unspecified; E03.9 Hypothyroidism, unspecified; D64.9 Anemia, unspecified; Z86.16 Personal history of COVID-19; Z85.038 Personal history of other malignant neoplasm of large intestine; Z79.899 Other long term (current) drug therapy; Z90.710 Acquired absence of both cervix and uterus; Z98.890 Other specified postprocedural states
CPT/HCPCS: 36415; 70450; 70450-26; 70496; 70496-26; 70498; 70498-26; 80048; 84484; 85025; 85610; 85730; 93005; 93010; 99223; 99232; 99233; 99238; 99285; A9270-GY